=== PATIENT | male | born 1955 | race Two or more races ===

== ENCOUNTER 2018-01-23 00:04 | Emergency (ER) | payer MEDICAID, OTHER ==
[~2018-01-23] VITALS: Ht 177.8 cm; Wt 104.3 kg
[2018-01-23] MEDS ORDERED: HYDROMORPHONE INJ 2 MG/ML DISP.SYRIN IV ONE (00:30)
[2018-01-23] MEDS ORDERED: ONDANSETRON HCL/PF 4 MG/2 ML VIAL IVP ONE (00:30)
[2018-01-23] MEDS ORDERED: IV NS 0.9% 500 ML BAG IV ONE (00:30)
--- NOTE | 2018-01-23 00:30 | NUR ---
PT BB SON C/O SHARP RIGHT ABDOMINAL PAIN 10/10 RADIATING TO FLANK X 1 WEEK, -N/V/D. PT IS AAOX4. RESP EVEN AND UNLABORED. VSS. NO S/S OF ACUTE DISTRESS NOTED. PT SAFETY AND COMFORT MEASURES IN PLACE. PT PLACED ON JEWELRY POLISHER AND POX. PT'S SON BEDSIDE. AWAITING MD FOR EVAL.
[2018-01-23] MEDS ORDERED: ONDANSETRON HCL/PF 4 MG/2 ML VIAL ONE (00:41)
[2018-01-23] MEDS ORDERED: HYDROMORPHONE INJ 0.5 MG/0.5 ML SYRINGE ONE ×2 (00:41→03:48)
[2018-01-23 00:50] LABS: BASOPHILS % (AUTO) 0.3 % (0.0-2.0); HEMATOCRIT 43 % (39-51); HEMOGLOBIN 14.5 g/dL (13.5-17.5); LYMPHOCYTES # (AUTO) 2.7 /CMM (0.8-4.8); LYMPHOCYTES % (AUTO) 36.4 % (20.0-44.0); MEAN CORPUSCULAR HGB CONC 34 g/dl (31.0-36.0); MEAN CORPUSCULAR VOLUME 85 fL (80-96); MONOCYTES # (AUTO) 0.4 /CMM (0.1-1.30); MONOCYTES % (AUTO) 5.5 % (2.0-12.0); NEUTROPHILS # (AUTO) 4.1 /CMM (1.8-8.9); NEUTROPHILS % (AUTO) 53.8 % (43.0-81.0); PLATELET COUNT (AUTO) 329 /CMM (150-450); RDW COEFFICIENT OF VARIATION 12.2 (11.5-15.0); RED BLOOD CELL COUNT(AUTO) 5.04 MIL/uL (4.5-6.0); WHITE BLOOD COUNT (AUTO) 7.5 K/uL (4.3-11.0)
[2018-01-23 01:19] LABS: INR 0.9 (0.87-1.13)
[2018-01-23 01:22] LABS: TROPONIN I < 0.017 ng/mL (0.00-0.056)
[2018-01-23 01:24] LABS: ALANINE AMINOTRANSFERASE 43 U/L (12-78); ALBUMIN 3.8 g/dL (3.4-5.0); ALKALINE PHOSPHATASE 55 U/L (46-116); ASPARTATE AMINOTRANSFERASE 22 U/L (15-37); BILIRUBIN,DIRECT 0.1 mg/dL (0.0-0.2); BILIRUBIN,TOTAL 0.3 mg/dL (0.2-1.0); CALCIUM, SERUM 9.1 mg/dL (8.5-10.1); CARBON DIOXIDE 26 mmol/L (21-32); CHLORIDE 98 mmol/L (98-107); CREATININE 1.4 mg/dL (0.6-1.3); GLUCOSE 300 mg/dL (74-106); POTASSIUM 4.4 mmol/L (3.5-5.1); SODIUM SERUM 134 mmol/L (136-145); TOTAL PROTEIN, SERUM 7.8 g/dL (6.4-8.2); UREA NITROGEN, BLOOD 21 mg/dL (7-18)
[2018-01-23 01:30] LABS: LIPASE 1800 U/L (73-393)
--- NOTE | 2018-01-23 02:15 | NUR ---
APPEALS AND GENERALIST CLERK BEDSIDE
--- NOTE | 2018-01-23 02:38 | NUR ---
EXERCISE EQUIPMENT REPAIR TECHNICIAN OUT OF PT'S ROOM
[2018-01-23 02:40] VITALS: BP 143/71
--- NOTE | 2018-01-23 02:41 | NUR ---
Patient is resting comfortably in bed with eyes closed. Easily aroused. VSS
[2018-01-23] MEDS ORDERED: HYDROMORPHONE 1 MG/1 ML DISP.SYRIN IV ONE (03:30)
--- NOTE | 2018-01-23 04:09 | NUR ---
RECEIVED A CALL FROM NORA AT [facility]. WAS TOLD THAT THIS PATIENT WAS ACCEPTED UNDER DR. VOGEL AND THEY WERE ASSIGNED TO MED SURG RM#: [id number]. NUMBER FOR REPORT IS [phone]. AUTHORIZATION #: [id number]
--- NOTE | 2018-01-23 04:18 | NUR ---
REPORT GIVEN TO CORETTA FLORES FOR TRINI AT [facility].
--- NOTE | 2018-01-23 05:10 | NUR ---
REPORT GIVEN TO ANIKET TRANSPORTER EMT. ALL INFORMATION AND PAPERWORK GIVEN
--- NOTE | 2018-01-23 05:12 | NUR ---
[facility] TRANSPORT TEAM BEDSIDE TO TRANSPORT PT TO [facility]. VSS UPON TRANSPORT.
--- NOTE | 2018-01-23 05:13 | NUR ---
Patient Tranfers to outside Facility Phys[facility]ASPREET [facility] REPORT GIVEN TO MEDSURGE ABHILASH FLORES FOR TRINI.
== END 2018-01-23 05:17 | disposition short-term general hospital (02) ==
LOC: ER 00:07 → EDBD 00:07 → ER 05:17
DX: K85.10 Biliary acute pancreatitis without necrosis or infection (principal); E11.9 Type 2 diabetes mellitus without complications; I10 Essential (primary) hypertension; F17.200 Nicotine dependence, unspecified, uncomplicated
CPT/HCPCS: 36415; 71045; 76705; 80048; 80076; 83690; 84484; 85025; 85730; 93005; 96374; 96375; 96376; 99285; 99406; A4606; J2405; J7040; Z7610